=== PATIENT | female | born 1950 | race Caucasian/White ===

== ENCOUNTER → 2025-06-17 07:20 | Outpatient (REF) | payer MEDICARE, SELFPAY | LOC: HWRCS 07:20 | PROVIDERS: ATTENDING PHYSICIAN Internal Medicine Cardiovascular Disease; FAMILY PHYSICIAN Student in an Organized Health Care Education/Training Program | DX: I48.92 Unspecified atrial flutter (principal) | CPT/HCPCS: 78452; 93017; A9500; J2785 ==

== ENCOUNTER 2025-09-05 06:03 | Day surgery (SDC) | payer MEDICARE, SELFPAY ==
[2025-08-08 08:57] VITALS: BMI 28.5
[2025-08-08 09:21] LABS: Hematocrit 37.8 % (37.0-47.0); Hemoglobin 13.6 g/dL (12.0-16.0); Mean Corp Hgb Conc. 36.0 g/dL (33.0-37.0); Mean Corpuscular Volume 94.5 fL (81.0-99.0); Nucleated Red Blood Cells % 0 %; Platelet Count 311 10^3/uL (130-400); Red Cell Dist. Width 12.0 % (11.5-14.5)
[2025-08-08 09:28] LABS: INR 1.00; PT 13.7 Sec (11.4-14.6)
--- NOTE | 2025-08-08 10:17 | SLEEP.APNEA ---
Sleep Apnea Order
-
Patient screened as High Risk for Sleep Apnea on Stop Bang Questionnaire. Patient referred to [facility] for Pre-Study.

Name: RAFAELA ELIAS
: 1950
Home Phone: Use [email or web address] instead
Cell Phone: [f_Reg Other Phone]
Work Phone:
Address: [address] [place] [address]
City: [place]
State: [place]
Zip: [f_[facility] Zip]
Family Physician: Verenice Fritz MD
Height 5 ft 2 in
Actual Weight 70.7 kg
Body Mass Index (BMI) 28.5
Ordering Provider: Savi Shell
[2025-08-08 11:31] LABS: ALT (SGPT) 18 U/L (0-35); AST (SGOT) 24 U/L (14-36); Albumin 4.8 g/dl (3.5-5.0); Alkaline Phosphatase 89 U/L (38-126); Blood Urea Nitrogen 18 mg/dl (7-17); Calcium 9.9 mg/dl (8.4-10.2); Carbon Dioxide 26 mmol/L (22-30); Chloride 100 mmol/L (98-107); Estimated Creatinine Clearance 55 ml/min; Glucose 96 mg/dl (70-99); Magnesium 2.1 mg/dl (1.6-2.3); Potassium 4.7 mmol/L (3.5-5.1); Sodium 131 mmol/L (135-145); Total Protein 7.5 g/dl (6.3-8.2); eGFR > 60.00
--- NOTE | 2025-08-09 16:05 | W.PN.UPDATE ---
Update Note
Progress Note Update
Na 131-Rx Lasix 20mg daily--fluid restrict free H20--D/C Spironolactone
[2025-09-05] VITALS (14 sets, daily range): BP systolic 103–159; BP diastolic 36–66
[2025-09-05 08:44] LABS: ACT-LR - POC 269 Seconds (116-155)
[2025-09-05 09:06] LABS: ACT-LR - POC 284 Seconds (116-155)
--- NOTE | 2025-09-05 09:15 | ITS.CL.ABL ---
Clothing [employer] - Ablation
Ablation
Procedure Report:
ELECTROPHYSIOLOGY ABLATION STUDY
DATE:: September 05, 2025�����������������������������REFERRING: Dr. Fritz
INDICATION: Paroxysmal supraventricular tachycardia in the form of atrial fibrillation.��History of regular tachycardia edition
HISTORY: See H and P.��As above
ANTIARRHYTHMIC DRUG: Carvedilol
PRE-PROCEDURE YOMI: No atrial thrombus and intracardiac ultrasound
PRESENTING RHYTHM: Sinus bradycardia
'TIME-OUT':��called and confirmed.
SEDATION/ANESTHESIA:��provided via the anesthesia department using general anesthesia (LMA).
INTRAVENOUS/ARTERIAL ACCESS:
Right femoral venous - 8Fr
Left femoral venous - 8 Fr, 6 Fr
Jpnoji-la-szpxc suture bilaterally
Ultrasound guidance for bilateral femoral vein access was utilized by me to obtain access with demonstration of normal anatomy
CHADS-VASC Score:
HAS-Bled Score
PROCEDURE:
1.��A decapolar CS catheter was placed within the CS for mapping and pacing.��This was also used as the reference catheter for the 3-D map.
2. The intracardiac ultrasound catheter was positioned in the RA to identify the FO for targeting of transseptal puncture, assist��in identification of the pulmonary vein ostia, monitoring pre and post ablation pulmonary vein flow velocities,
monitoring for 'bubble' formation during RF application as a sign of thermal injury,��and to monitor for pericardial effusion during mapping and ablation procedure.���Left atrial size, LV ejection fraction, and pulmonary vein flows were monitored
pre and post ablation procedure. The other valves were inspected and found to be free of significant regurgitation or stenosis.
3.��Half of the calculated heparin bolus was administered prior to the first transeptal puncture.��Transseptal puncture was performed to diagnose RA and LA pressure so that safety of LA mapping and ablation could be further assessed, and to access
the left atrium and pulmonary veins for mapping and ablation.��This entailed advancing an 10 Japanese steerable sheath with dilator into the superior vena cava and withdrawing both (monitoring intracardiac ultrasound, fluoroscopy and tip pressure)
with the tip oriented toward the atrial septum.��The fossa ovalis was engaged (indicated by sudden displacement of the sheath tip as well as tenting of the fossa seen on intracardiac ultrasound).��Left atrial access required a pass with the
Brockenbrough needle extended.��Left atrial catheter position was confirmed by pressure monitoring (RA mean pressure 2 mm Hg and LA mean presure initial 14 mm Hg up to 17 and intraprocedure), LA saturation (99%),��as well as fluoroscopy.��The sheath
was advanced over the dilator and positioned in the left atrium.��This procedure was repeated for the Agilis sheath.��The remainder of the calculated heparin bolus was administered and heparin was
infused to maintain ACT at 300 -350 seconds throughout the case.
4.��RA pacing was performed via the proximal decapolar poles and LA pacing was performed via the distal decapolr poles.
5. A quadrapolar catheter was first positioned at the His position for His Bundle recording which was tagged via the 3-D Navex sytem, and then passed to the RVA for RV pacing and recording.
6. The 9 mm lattice was placed in each of the LIPV, LSPV, RSPV and the RIPV.��
7.��Next, a 3-D map was created using Navex.���A 3-D reconstructed CT image was compared to the 3-D Navex map to assist in anatomic interpretation, mapping and ablation.��The CT image and the NavX image were fused.
8. Wide circumferential ablation around the left and right veins was performed rendering entrance and exit block. Additional substrate on the appendage side of ligament Bill was ablated at the jhoan. Roofline and floor line connecting the
right and left pulmonary vein lesion sets was performed rendering the posterior wall isolated. We then performed CTI flutter ablation at the end of the procedure.
9. Persistent bidirectional block was rendered across the CTI isthmus 170 ms intra isthmus conduction time bidirectionally. Radiofrequency energy was delivered at 400 W for 4 seconds and PFA lesions were given from the mid isthmus back to the IVC
rendering bidirectional block and the patient was noninducible post EP study for any tach arrhythmia down to atrial factors in both atria.
TOTAL FLOURO TIME: 11.3 minutes 122 mGy
TOTAL RF DURATION: 1 minutes
REVERSAL OF HEPARIN: 35 mg of protamine, slow IV administration
COMPLICATIONS:
None
Intracardiac US shows no pericardial effusion post ablation.
SUMMARY:��
Complex left atrial mapping and ablation.
Isolation of all 4 pulmonary veins as above. Left atrial posterior wall isolation as above. CTI flutter ablation with bidirectional block.
RECOMMENDATIONS:
1. Ambulate in 4 hours
2. Resume anticoagulation
3.� Consider same-day discharge
4.��Outpatient primary nutrient management specialist follow-up
Copy to: Dr. Yoselin Montes
--- NOTE | 2025-09-05 14:37 | W.PN.UPDATE ---
Update Note
Progress Note Update
75 yo WF s/p PVI (same day) She denies cp, sob, mickey diet, voiding, amb w/o dizziness, EKG SR, b/l groins c/d/i no HT. She will resume Eliquis tonight. Activity restrictions reviewed. She will f/u Dr. Montes in 3 mo. She is for d/c home after 2pm.
== END 2025-09-05 15:10 | disposition home or self-care (01) ==
LOC: CATH 06:03
PROVIDERS: ATTENDING PHYSICIAN Internal Medicine Cardiovascular Disease; FAMILY PHYSICIAN Student in an Organized Health Care Education/Training Program; OTHER PHYSICIAN Internal Medicine Cardiovascular Disease
DX: I48.0 Paroxysmal atrial fibrillation (principal); I48.92 Unspecified atrial flutter; E03.9 Hypothyroidism, unspecified; E11.9 Type 2 diabetes mellitus without complications; I10 Essential (primary) hypertension; I47.10 Supraventricular tachycardia, unspecified; I49.3 Ventricular premature depolarization; L93.0 Discoid lupus erythematosus; M81.0 Age-related osteoporosis without current pathological fracture; Z87.891 Personal history of nicotine dependence; Z79.01 Long term (current) use of anticoagulants; Z79.899 Other long term (current) drug therapy; Z80.0 Family history of malignant neoplasm of digestive organs; Z82.49 Family history of ischemic heart disease and other diseases of the circulatory system; Z83.3 Family history of diabetes mellitus; Z85.3 Personal history of malignant neoplasm of breast; Z90.13 Acquired absence of bilateral breasts and nipples; Z90.710 Acquired absence of both cervix and uterus; E87.1 Hypo-osmolality and hyponatremia
CPT/HCPCS: C1733; C1894; C1730; C1766; C1892; C1759; 36415; 75572; 80053; 83735; 85025; 85347; 85610; 86850; 86900; 86901; 93005; 93655; 93656; 93657; Q9967